=== PATIENT | female | born 1995 | race Asian ===

== ENCOUNTER 2022-03-14 10:40 | Emergency (ER) | payer BC ==
[~2022-03-14] VITALS: Ht 154.9 cm; Wt 55.9 kg
[~2022-03-14 10:40] MED LIST: ESCI-8 PO; OLAN5TAB52 PO
[2022-03-14 11:02] VITALS: BP 118/55
== END 2022-03-14 11:51 | disposition left against medical advice (07) ==
LOC: EMS 10:55
DX: Z53.21 Procedure and treatment not carried out due to patient leaving prior to being seen by health care provider (principal)

== ENCOUNTER 2022-10-31 01:02 | Inpatient (IN) | payer MEDICAID ==
[~2022-10-31] VITALS: Ht 154.9 cm; Wt 62.7 kg
[2022-10-31] MEDS ORDERED: LORazepam 2 MG TABLET PO PRN (18:30)
[2022-11-01 05:14] VITALS: BP 139/82; PULSE 81; RESP 18; TEMP 97.7; O2SAT 99
[2022-11-01 08:28] VITALS: BP 117/74; PULSE 66; RESP 16; TEMP 97.8; O2SAT 98
[2022-11-01] MEDS: OLANZapine 5 MG TABLET PO SCH ×2 (10:00→20:41)
[2022-11-01 10:02] VITALS: BP 117/74; PULSE 66; RESP 20; TEMP 97.8
[2022-11-01] MEDS ORDERED: PETROLATUM,WHITE 28 GM JELLY TP PRN (11:15)
[2022-11-01] MEDS ORDERED: NICOTINE 14 MG/24 HOUR PATCH TD PRN (11:15)
[2022-11-01] MEDS ORDERED: IBUPROFEN 400 MG TABLET PO PRN (11:15)
[2022-11-01] MEDS ORDERED: MAG HYDROX/AL HYDROX/SIMETH ES 30 ML SUSPENSION UDCUP PO PRN (11:15)
[2022-11-01] MEDS ORDERED: CloNIDine HCL 0.1 MG TABLET PO PRN (11:15)
[2022-11-01] MEDS ORDERED: ONDANSETRON HCL 4 MG TABLET PO PRN (11:15)
[2022-11-01] MEDS ORDERED: MAGNESIUM HYDROXIDE SUSPENSION 30 ML UDCUP PO PRN (11:15)
[2022-11-01] MEDS ORDERED: GuaiFENesin/D-METHORPHAN [SUGAR-FREE] 200-20MG/10 ML SYRUP UDCUP PO PRN (11:15)
[2022-11-01] MEDS ORDERED: ACETAMINOPHEN 325 MG TABLET PO PRN (11:15)
[2022-11-01] MEDS ORDERED: ALBUTEROL SULFATE HFA 90 MCG/PUFF 8 GM INHALER IH PRN (11:15)
[2022-11-01] MEDS ORDERED: LOPERAMIDE HCL 2 MG CAPSULE PO PRN (11:15)
[2022-11-01] MEDS ORDERED: DOCUSATE SODIUM 100 MG CAPSULE PO PRN (11:15)
[2022-11-01 20:11] VITALS: BP 123/72; PULSE 64; RESP 18; TEMP 97.7; O2SAT 100
[2022-11-02 08:00] LABS: HEMOGLOBIN A1C 5.1 % (3.8-5.6)
[2022-11-02 08:27] LABS: CHOL/HDL RATIO 3.3 (3.9-5.7); THYROID STIMULATING HORMONE 1.1 uIU/mL (0.36-3.74)
[2022-11-02 08:49] VITALS: BP 119/79; PULSE 79; RESP 16; TEMP 97.6; O2SAT 98
[2022-11-02] MEDS: OLANZapine 5 MG TABLET PO SCH ×2 (08:50→20:58)
[2022-11-02 20:23] VITALS: BP 154/82; PULSE 80; RESP 16; TEMP 97.5; O2SAT 97
[2022-11-03 08:30] VITALS: BP 133/93; PULSE 99; RESP 18; TEMP 98.3; O2SAT 97
[2022-11-03] MEDS: OLANZapine 5 MG TABLET PO SCH ×2 (08:52→20:28)
[2022-11-03] MEDS ORDERED: ChlorproMAZINE HCL 50 MG/2 ML AMP ONE (13:11)
[2022-11-03] MEDS ORDERED: LORazepam 2 MG/ML VIAL ONE (13:11)
[2022-11-03] MEDS ORDERED: DiphenhydrAMINE HCL 50 MG/ML VIAL ONE (13:11)
[2022-11-03] MEDS ORDERED: ChlorproMAZINE HCL 50 MG/2 ML AMP IM ONE (13:15)
[2022-11-03] MEDS ORDERED: DiphenhydrAMINE HCL 50 MG/ML VIAL IM ONE (13:15)
[2022-11-03] MEDS ORDERED: LORazepam 2 MG/ML VIAL IM ONE (13:15)
[2022-11-03 20:30] VITALS: BP 109/62; PULSE 86; RESP 17; TEMP 97; O2SAT 97
[2022-11-04] MEDS: OLANZapine 5 MG TABLET PO SCH ×2 (09:00→21:00)
[2022-11-04 12:30] VITALS: BP 147/83; PULSE 77; RESP 18; TEMP 97.3; O2SAT 97
[2022-11-04 20:40] VITALS: BP 130/79; PULSE 89; RESP 18; TEMP 97.6; O2SAT 97
[2022-11-05 08:00] LABS: BASOPHILS % (AUTO) 0.6 % (0.0-2.0); EOSINOPHILS % (AUTO) 0.8 % (1.0-6.0); HEMATOCRIT 43.9 % (36-46); HEMOGLOBIN 14.5 g/dL (12.0-16.0); LYMPHOCYTES # (AUTO) 2.5 K/uL (1.0-4.8); LYMPHOCYTES % (AUTO) 37.1 % (22.0-44.0); MEAN CORPUSCULAR HEMOGLOBIN 31.2 pg (26.0-34.0); MEAN CORPUSCULAR VOLUME 94 fL (80-100); MONOCYTES # (AUTO) 0.5 K/uL (0.1-1.0); MONOCYTES % (AUTO) 7.9 % (2.0-9.0); NEUTROPHILS # (AUTO) 3.6 K/uL (1.8-7.7); NEUTROPHILS % (AUTO) 53.6 % (40.0-70.0); PLATELET COUNT (AUTO) 240 K/uL (150-450); RED BLOOD CELL COUNT(AUTO) 4.64 MIL/uL (4.00-5.20); RED CELL DISTRIBUTION WIDTH 12.6 % (11.5-14.5); WHITE BLOOD COUNT (AUTO) 6.7 K/uL (4.5-11.0)
[2022-11-05 08:12] LABS: APPEARANCE,URINE CLEAR (CLEAR); BILIRUBIN,URINE NEGATIVE (NEGATIVE); COLOR,URINE LIGHT YELLOW (YELLOW); GLUCOSE, URINE (UA) NEGATIVE (NEGATIVE); KETONES,URINE NEGATIVE (NEGATIVE); LEUKOCYTE ESTERASE ,URINE NEGATIVE (NEGATIVE); NITRATE,URINE NEGATIVE (NEGATIVE); OCCULT BLOOD,URINE NEGATIVE (NEGATIVE); PROTEIN,URINE NEGATIVE (NEGATIVE); UROBILINOGEN,URINE <=1.0 mg/dL (<=1.0)
[2022-11-05] MEDS: OLANZapine 5 MG TABLET PO SCH ×2 (08:16→21:00)
[2022-11-05 08:17] LABS: ALCOHOL, URINE DRUG SCREEN NEGATIVE (NEGATIVE); AMPHET/METH SCREEN,URINE NEGATIVE (NEGATIVE); BARBITURATE SCREEN, URINE NEGATIVE (NEGATIVE); BENZODIAZEPINES SCREEN,URINE NEGATIVE (NEGATIVE); CANNABINOID SCREEN,URINE NEGATIVE (NEGATIVE); COCAINE SCREEN,URINE NEGATIVE (NEGATIVE); METHADONE SCREEN, URINE NEGATIVE (NEGATIVE); OPIATE SCREEN,URINE NEGATIVE (NEGATIVE); PHENCYCLIDINE SCREEN,URINE NEGATIVE (NEGATIVE)
[2022-11-05 08:20] VITALS: BP 152/96; PULSE 100; RESP 20; TEMP 97.9; O2SAT 98
[2022-11-05 08:22] LABS: ALANINE AMINOTRANSFERASE 101 U/L (12-78); ALBUMIN 4.2 g/dL (3.4-5.0); ALKALINE PHOSPHATASE 64 U/L (46-116); ANION GAP 8 mmol/L (8-16); ASPARTATE AMINOTRANSFERASE 45 U/L (15-37); BILIRUBIN,TOTAL 0.7 mg/dL (0.1-1.0); CALCIUM, TOTAL 9.4 mg/dL (8.8-10.5); CARBON DIOXIDE 29 mmol/L (22-29); CHLORIDE 101 mmol/L (98-107); CHOL/HDL RATIO 2.9 (3.9-5.7); CHOLESTEROL 170 mg/dL (131-200); GLOMERULAR FILTR. RATE CALC > 60 mL/min (>60); GLUCOSE,RANDOM 90 mg/dL (70-110); HDL CHOLESTEROL 59 mg/dL (40-60); LDL CHOL (CALC.) 84 mg/dL (0-130); POTASSIUM 3.8 mmol/L (3.5-5.1); SODIUM SERUM 138 mmol/L (136-145); TOTAL PROTEIN, SERUM 8.2 g/dL (6.4-8.2); TRIGLYCERIDES 135 mg/dL (15-150); UREA NITROGEN, BLOOD 11 mg/dL (7-18)
[2022-11-05] MEDS ORDERED: LORazepam 2 MG/ML VIAL ONE (12:38)
[2022-11-05] MEDS ORDERED: ChlorproMAZINE HCL 50 MG/2 ML AMP ONE (12:39)
[2022-11-05] MEDS ORDERED: DiphenhydrAMINE HCL 50 MG/ML VIAL ONE (12:39)
[2022-11-05] MEDS ORDERED: ChlorproMAZINE HCL 50 MG/2 ML AMP IM ONE (12:45)
[2022-11-05] MEDS ORDERED: LORazepam 2 MG/ML VIAL IM ONE (12:45)
[2022-11-05] MEDS ORDERED: DiphenhydrAMINE HCL 50 MG/ML VIAL IM ONE (12:45)
[2022-11-05 20:03] VITALS: BP 126/74; PULSE 83; RESP 17; TEMP 97.6; O2SAT 97
[2022-11-06 08:42] VITALS: BP 118/83; PULSE 100; RESP 18; TEMP 97.9; O2SAT 98
[2022-11-06] MEDS: OLANZapine 5 MG TABLET PO SCH ×2 (08:59→20:26)
[2022-11-06 20:45] VITALS: BP 142/98; PULSE 110; RESP 18; TEMP 98.3; O2SAT 98
[2022-11-07 08:17] VITALS: BP 150/84; PULSE 113; RESP 17; TEMP 98.1; O2SAT 97
[2022-11-07] MEDS: OLANZapine 5 MG TABLET PO SCH ×2 (08:41→20:47)
[2022-11-07 21:19] VITALS: BP 131/64; PULSE 87; RESP 18; TEMP 97.8; O2SAT 100
[2022-11-08 08:30] VITALS: BP 113/66; PULSE 96; RESP 18; TEMP 98.1; O2SAT 97
[2022-11-08] MEDS: OLANZapine 5 MG TABLET PO SCH ×2 (09:00→21:00)
[2022-11-08] MEDS ORDERED: HALOPERIDOL LACTATE 5 MG/ML VIAL ONE (10:33)
[2022-11-08] MEDS ORDERED: DiphenhydrAMINE HCL 50 MG/ML VIAL ONE (10:33)
[2022-11-08] MEDS ORDERED: HALOPERIDOL LACTATE 5 MG/ML VIAL IM ONE (10:45)
[2022-11-08] MEDS ORDERED: DiphenhydrAMINE HCL 50 MG/ML VIAL IM ONE (10:45)
[2022-11-08] MEDS ORDERED: LORazepam 2 MG/ML VIAL IM ONE (10:45)
[2022-11-08 20:04] VITALS: TEMP 98.3
[2022-11-09] MEDS: OLANZapine 5 MG TABLET PO SCH ×2 (08:43→20:08)
[2022-11-09 09:25] VITALS: BP 101/67; PULSE 99; RESP 18; TEMP 98.2; O2SAT 98
[2022-11-09 20:03] VITALS: BP 134/87; PULSE 90; RESP 18; TEMP 97.8; O2SAT 97
[2022-11-10 08:38] VITALS: BP 128/89; PULSE 96; RESP 17; TEMP 97.7; O2SAT 100
[2022-11-10] MEDS: OLANZapine 5 MG TABLET PO SCH ×3 (08:42→21:25)
[2022-11-10] MEDS ORDERED: ChlorproMAZINE HCL 50 MG/2 ML AMP IM ONE (08:45)
[2022-11-10] MEDS ORDERED: DiphenhydrAMINE HCL 50 MG/ML VIAL IM ONE (08:45)
[2022-11-10] MEDS ORDERED: LORazepam 2 MG/ML VIAL IM ONE (08:45)
[2022-11-10] MEDS ORDERED: ChlorproMAZINE HCL 50 MG/2 ML AMP ONE (08:46)
[2022-11-10] MEDS ORDERED: LORazepam 2 MG/ML VIAL ONE (08:46)
[2022-11-10] MEDS ORDERED: DiphenhydrAMINE HCL 50 MG/ML VIAL ONE (08:47)
[2022-11-10 20:34] VITALS: BP 103/72; PULSE 85; RESP 18; TEMP 97.9; O2SAT 100
[2022-11-11 08:46] VITALS: BP 111/86; PULSE 100; RESP 18; TEMP 98.4; O2SAT 97
[2022-11-11] MEDS: OLANZapine 5 MG TABLET PO SCH ×4 (09:00→20:30)
[2022-11-11] MEDS ORDERED: ChlorproMAZINE HCL 50 MG/2 ML AMP IM PRN (10:15)
[2022-11-11] MEDS ORDERED: DiphenhydrAMINE HCL 50 MG/ML VIAL IM PRN (10:15)
[2022-11-11 20:50] VITALS: BP 132/79; PULSE 97; RESP 18; TEMP 97.6; O2SAT 98
[2022-11-12 08:20] VITALS: BP 118/68; PULSE 100; RESP 16; TEMP 98.7; O2SAT 99
[2022-11-12] MEDS: OLANZapine 5 MG TABLET PO SCH ×4 (08:50→20:55)
[2022-11-12 20:03] VITALS: BP 102/60; PULSE 77; RESP 18; TEMP 97.5; O2SAT 98
[2022-11-13 08:09] VITALS: BP 135/74; PULSE 99; RESP 18; TEMP 98.1; O2SAT 99
[2022-11-13] MEDS ORDERED: DiphenhydrAMINE HCL 50 MG/ML VIAL IM PRN (08:15)
[2022-11-13] MEDS ORDERED: ChlorproMAZINE HCL 50 MG/2 ML AMP IM PRN (08:15)
[2022-11-13] MEDS: OLANZapine 7.5 MG TABLET PO SCH ×2 (08:41→20:48)
[2022-11-13] MEDS: VALPROIC ACID 250 MG/5 ML SOLUTION UDCUP PO SCH ×2 (08:44→20:48)
[2022-11-13 20:45] VITALS: BP 95/60; PULSE 66; RESP 18; TEMP 97.3; O2SAT 100
[2022-11-14] MEDS: QUEtiapine FUMARATE 100 MG TABLET PO PRN ×3 (01:08→15:27)
[2022-11-14] MEDS ORDERED: GLUCAGON,HUMAN RECOMBINANT 1 MG VIAL IM PRN (06:45)
[2022-11-14] MEDS ORDERED: INSULIN LISPRO 100 UNITS/ML SQ PRN (06:45)
[2022-11-14 08:00] VITALS: BP 123/71; PULSE 93; RESP 18; TEMP 98.3; O2SAT 98
[2022-11-14] MEDS: VALPROIC ACID 250 MG/5 ML SOLUTION UDCUP PO SCH ×2 (08:32→20:40)
[2022-11-14] MEDS: OLANZapine 7.5 MG TABLET PO SCH ×2 (08:32→20:41)
[2022-11-14 23:25] VITALS: RESP 18; TEMP 97.9
[2022-11-15 08:26] VITALS: BP 130/66; PULSE 89; RESP 18; TEMP 98; O2SAT 98
[2022-11-15] MEDS: VALPROIC ACID 250 MG/5 ML SOLUTION UDCUP PO SCH ×2 (08:43→20:31)
[2022-11-15] MEDS: OLANZapine 7.5 MG TABLET PO SCH ×2 (08:43→20:31)
[2022-11-15 20:40] VITALS: BP 129/79; PULSE 82; RESP 19; TEMP 97.9; O2SAT 97
[2022-11-16 08:15] VITALS: BP 122/81; PULSE 99; RESP 18; TEMP 98.1; O2SAT 99
[2022-11-16] MEDS: VALPROIC ACID 250 MG/5 ML SOLUTION UDCUP PO SCH ×2 (08:25→20:20)
[2022-11-16] MEDS: OLANZapine 7.5 MG TABLET PO SCH ×2 (08:25→20:20)
[2022-11-17] MEDS: OLANZapine 7.5 MG TABLET PO SCH ×2 (08:31→21:58)
[2022-11-17] MEDS: VALPROIC ACID 250 MG/5 ML SOLUTION UDCUP PO SCH ×2 (08:31→21:56)
[2022-11-17 08:39] VITALS: RESP 18
[2022-11-17 08:40] VITALS: BP 148/78; PULSE 88; RESP 16; TEMP 98; O2SAT 99
[2022-11-17 20:36] VITALS: BP 113/63; PULSE 72; RESP 18; TEMP 98; O2SAT 98
[2022-11-18 08:11] VITALS: BP 152/77; PULSE 94; RESP 18; TEMP 97.6; O2SAT 97
[2022-11-18] MEDS: OLANZapine 7.5 MG TABLET PO SCH ×2 (08:23→20:20)
[2022-11-18] MEDS: VALPROIC ACID 250 MG/5 ML SOLUTION UDCUP PO SCH ×2 (08:25→20:22)
[2022-11-18] MEDS: QUEtiapine FUMARATE 100 MG TABLET PO PRN ×2 (10:45→20:19)
[2022-11-18 20:38] VITALS: BP 117/92; PULSE 81; RESP 18; TEMP 97.8; O2SAT 98
[2022-11-19] MEDS: OLANZapine 7.5 MG TABLET PO SCH ×2 (08:24→20:15)
[2022-11-19 08:33] VITALS: BP 139/73; PULSE 103; RESP 17; TEMP 97.6; O2SAT 99
[2022-11-19] MEDS: VALPROIC ACID 250 MG/5 ML SOLUTION UDCUP PO SCH ×2 (09:57→20:15)
[2022-11-19 20:06] VITALS: BP 121/72; PULSE 98; RESP 18; TEMP 98.1; O2SAT 99
[2022-11-20] MEDS: QUEtiapine FUMARATE 100 MG TABLET PO PRN (08:27)
[2022-11-20] MEDS: VALPROIC ACID 250 MG/5 ML SOLUTION UDCUP PO SCH ×2 (08:27→20:47)
[2022-11-20] MEDS: OLANZapine 7.5 MG TABLET PO SCH ×2 (08:27→20:47)
[2022-11-20 10:43] VITALS: BP 134/77; PULSE 85; RESP 17; TEMP 97.8; O2SAT 96
[2022-11-20 10:47] VITALS: BP 134/77; PULSE 85; RESP 17; TEMP 97.8; O2SAT 96
[2022-11-20 21:00] VITALS: BP 109/63; PULSE 68; RESP 18; TEMP 97.4; O2SAT 99
[2022-11-21 08:19] VITALS: BP 128/61; PULSE 95; RESP 18; TEMP 97.3; O2SAT 100
[2022-11-21] MEDS: QUEtiapine FUMARATE 100 MG TABLET PO PRN (08:44)
[2022-11-21] MEDS: OLANZapine 7.5 MG TABLET PO SCH ×2 (08:44→20:19)
[2022-11-21] MEDS: VALPROIC ACID 250 MG/5 ML SOLUTION UDCUP PO SCH ×2 (08:44→20:19)
[2022-11-21 20:00] VITALS: BP 122/73; PULSE 74; RESP 18; TEMP 97.8; O2SAT 100
[2022-11-22] MEDS: OLANZapine 7.5 MG TABLET PO SCH ×2 (08:16→20:16)
[2022-11-22] MEDS: QUEtiapine FUMARATE 100 MG TABLET PO PRN (08:16)
[2022-11-22] MEDS: VALPROIC ACID 250 MG/5 ML SOLUTION UDCUP PO SCH ×2 (08:18→20:16)
[2022-11-22 08:33] VITALS: BP 111/71; PULSE 95; RESP 17; TEMP 97.3; O2SAT 95
[2022-11-22 20:00] VITALS: BP 129/88; PULSE 99; RESP 18; TEMP 97.7; O2SAT 100
[2022-11-23] MEDS: OLANZapine 7.5 MG TABLET PO SCH ×2 (08:15→20:14)
[2022-11-23] MEDS: VALPROIC ACID 250 MG/5 ML SOLUTION UDCUP PO SCH ×2 (08:16→20:14)
[2022-11-23 08:41] VITALS: BP 129/86; PULSE 94; RESP 20; TEMP 97.5; O2SAT 100
[2022-11-23 20:34] VITALS: BP 107/57; PULSE 89; RESP 18; TEMP 97.7; O2SAT 100
[2022-11-24] MEDS: OLANZapine 7.5 MG TABLET PO SCH ×2 (08:22→21:22)
[2022-11-24] MEDS: VALPROIC ACID 250 MG/5 ML SOLUTION UDCUP PO SCH ×2 (08:22→21:22)
[2022-11-24 09:05] VITALS: BP 122/77; PULSE 67; RESP 17; TEMP 97.3; O2SAT 95
[2022-11-24 22:02] VITALS: BP 127/75; PULSE 78; RESP 17; TEMP 97.8; O2SAT 97
[2022-11-25 08:00] VITALS: BP 134/84; PULSE 98; RESP 17; TEMP 99.2; O2SAT 96
[2022-11-25] MEDS: VALPROIC ACID 250 MG/5 ML SOLUTION UDCUP PO SCH ×2 (08:18→20:13)
[2022-11-25] MEDS: OLANZapine 7.5 MG TABLET PO SCH ×2 (08:18→20:13)
[2022-11-25 21:27] VITALS: RESP 16
[2022-11-26 08:00] VITALS: BP 117/84; PULSE 98; RESP 18; TEMP 98.4; O2SAT 98
[2022-11-26] MEDS: QUEtiapine FUMARATE 100 MG TABLET PO PRN (08:11)
[2022-11-26] MEDS: OLANZapine 7.5 MG TABLET PO SCH ×2 (08:11→20:09)
[2022-11-26] MEDS: VALPROIC ACID 250 MG/5 ML SOLUTION UDCUP PO SCH ×2 (08:12→20:09)
[2022-11-26 20:32] VITALS: BP 109/60; PULSE 70; RESP 18; TEMP 97.6; O2SAT 99
[2022-11-27 08:07] VITALS: BP 115/63; PULSE 87; RESP 17; TEMP 97.8; O2SAT 96
[2022-11-27] MEDS: VALPROIC ACID 250 MG/5 ML SOLUTION UDCUP PO SCH ×2 (08:28→20:12)
[2022-11-27] MEDS: OLANZapine 7.5 MG TABLET PO SCH ×2 (08:28→20:12)
[2022-11-27] MEDS: QUEtiapine FUMARATE 100 MG TABLET PO PRN (08:28)
[2022-11-27 20:31] VITALS: BP 125/78; PULSE 90; RESP 18; TEMP 97.7; O2SAT 96
[2022-11-28] MEDS: OLANZapine 7.5 MG TABLET PO SCH ×2 (08:03→20:21)
[2022-11-28] MEDS: VALPROIC ACID 250 MG/5 ML SOLUTION UDCUP PO SCH ×2 (08:03→20:21)
[2022-11-28 08:15] VITALS: BP 113/60; PULSE 80; RESP 17; TEMP 97.6; O2SAT 99
[2022-11-28 20:20] VITALS: BP 116/60; PULSE 89; RESP 17; TEMP 97.8
[2022-11-29] MEDS: VALPROIC ACID 250 MG/5 ML SOLUTION UDCUP PO SCH ×2 (08:27→20:34)
[2022-11-29] MEDS: QUEtiapine FUMARATE 100 MG TABLET PO PRN (08:27)
[2022-11-29] MEDS: OLANZapine 7.5 MG TABLET PO SCH ×2 (08:27→20:35)
[2022-11-29 09:18] VITALS: BP 112/65; PULSE 70; RESP 20; TEMP 98; O2SAT 98
[2022-11-29 21:27] VITALS: BP 122/76; PULSE 90; RESP 17; TEMP 97.6; O2SAT 98
[2022-11-30 08:00] VITALS: BP 118/70; PULSE 88; RESP 18; TEMP 98; O2SAT 98
[2022-11-30] MEDS: VALPROIC ACID 250 MG/5 ML SOLUTION UDCUP PO SCH ×2 (08:03→21:32)
[2022-11-30] MEDS: OLANZapine 7.5 MG TABLET PO SCH ×2 (08:03→21:34)
[2022-11-30 20:50] VITALS: BP 115/72; PULSE 85; RESP 17; TEMP 98.5; O2SAT 97
[2022-12-01] MEDS: OLANZapine 7.5 MG TABLET PO SCH ×2 (08:21→20:14)
[2022-12-01] MEDS: VALPROIC ACID 250 MG/5 ML SOLUTION UDCUP PO SCH ×2 (08:21→20:14)
[2022-12-01 09:38] VITALS: BP 108/72; PULSE 83; RESP 17; TEMP 97.5; O2SAT 100
[2022-12-01 20:17] VITALS: BP 105/67; PULSE 83; RESP 17; TEMP 97.7; O2SAT 97
[2022-12-02] MEDS: OLANZapine 7.5 MG TABLET PO SCH ×2 (08:09→20:17)
[2022-12-02] MEDS: VALPROIC ACID 250 MG/5 ML SOLUTION UDCUP PO SCH ×2 (08:11→20:17)
[2022-12-02 08:29] VITALS: BP 124/66; PULSE 100; RESP 18; TEMP 97.8; O2SAT 98
[2022-12-02 20:11] VITALS: BP 113/65; PULSE 90; RESP 18; TEMP 97.6; O2SAT 98
[2022-12-03] MEDS: OLANZapine 7.5 MG TABLET PO SCH ×2 (08:20→20:33)
[2022-12-03] MEDS: VALPROIC ACID 250 MG/5 ML SOLUTION UDCUP PO SCH ×2 (08:20→20:33)
[2022-12-03 08:48] VITALS: BP 122/73; PULSE 98; RESP 16; TEMP 97.8; O2SAT 100
[2022-12-03 20:20] VITALS: BP 115/74; PULSE 82; RESP 16; TEMP 97.5; O2SAT 99
[2022-12-04 09:00] VITALS: BP 109/57; PULSE 75; RESP 17; TEMP 97.7; O2SAT 98
[2022-12-04] MEDS: OLANZapine 7.5 MG TABLET PO SCH ×2 (09:06→20:17)
[2022-12-04] MEDS: VALPROIC ACID 250 MG/5 ML SOLUTION UDCUP PO SCH ×2 (09:06→20:17)
[2022-12-04 21:25] VITALS: BP 119/56; PULSE 86; RESP 18; TEMP 97.7; O2SAT 100
[2022-12-05] MEDS: VALPROIC ACID 250 MG/5 ML SOLUTION UDCUP PO SCH ×2 (08:21→20:06)
[2022-12-05] MEDS: OLANZapine 7.5 MG TABLET PO SCH ×2 (08:21→20:06)
[2022-12-05 19:01] VITALS: BP 125/84; PULSE 80; RESP 18; TEMP 97.7
[2022-12-06 02:06] VITALS: BP 117/72; PULSE 70; RESP 16; TEMP 97.8; O2SAT 98
[2022-12-06] MEDS: VALPROIC ACID 250 MG/5 ML SOLUTION UDCUP PO SCH ×2 (08:12→20:16)
[2022-12-06] MEDS: OLANZapine 7.5 MG TABLET PO SCH ×2 (08:12→20:16)
[2022-12-06 08:30] VITALS: BP 118/61; PULSE 83; RESP 20; TEMP 97.7; O2SAT 97
[2022-12-06 20:00] VITALS: BP 125/77; PULSE 90; RESP 20; TEMP 97.5; O2SAT 100
[2022-12-07] MEDS: OLANZapine 7.5 MG TABLET PO SCH ×2 (08:36→20:14)
[2022-12-07] MEDS: VALPROIC ACID 250 MG/5 ML SOLUTION UDCUP PO SCH ×2 (08:36→20:14)
[2022-12-07 10:30] VITALS: BP 118/72; PULSE 84; RESP 18; TEMP 97.7; O2SAT 99
[2022-12-07 22:21] VITALS: BP 121/70; PULSE 87; RESP 18; TEMP 97.7; O2SAT 98
[2022-12-08] MEDS: OLANZapine 7.5 MG TABLET PO SCH (09:01)
[2022-12-08] MEDS: VALPROIC ACID 250 MG/5 ML SOLUTION UDCUP PO SCH (09:01)
[2022-12-08 10:28] VITALS: BP 115/69; PULSE 81; RESP 18; TEMP 97.5; O2SAT 99
[2022-12-08] MEDS ORDERED: OLAN7.5T22 PO (11:10)
[2022-12-08] MEDS ORDERED: DIVA-112 PO (11:10)
== END 2022-12-08 13:07 | disposition home or self-care (01) | DRG 753 ==
LOC: B3A 11-01 02:39
PROVIDERS: ADMIT Psychiatry & Neurology Psychiatry; ATTEND Psychiatry & Neurology Psychiatry
DX: F31.2 Bipolar disorder, current episode manic severe with psychotic features (principal); E87.1 Hypo-osmolality and hyponatremia; E66.9 Obesity, unspecified; D72.829 Elevated white blood cell count, unspecified; B36.9 Superficial mycosis, unspecified; F41.9 Anxiety disorder, unspecified; G47.00 Insomnia, unspecified; Z79.899 Other long term (current) drug therapy; Z68.26 Body mass index [BMI] 26.0-26.9, adult; Z88.0 Allergy status to penicillin; Z88.6 Allergy status to analgesic agent
CPT/HCPCS: 80053; 80061; 80164; 80307; 81003; 83036; 84443; 84703; 85025; J1200; J1630; J2060; J3230